=== PATIENT | female | born 1945 | race Caucasian/White ===

== ENCOUNTER 2017-04-07 10:51 | Observation (INO) | payer MEDICARE, BC ==
[~2017-04-07] VITALS: Ht 162.6 cm; Wt 84.5 kg
--- NOTE | ~2017-04-07 | CR206 ---
[facility] A Service of [facility] & [facility] RADIOLOGY TEXT RESULTS PATIENT: AUDREY DIXON LOCATION: [facility] [id number] : [birth year] UNIT #: [id number] AGE: [address]: Jose Luis Pineda MD SEX: F ORDER DR: [id number] [facility] [address] [facility]. [place], [place] [address] [id number] I MR#: [id number] #: [id number] NAME: AUDREY DIXON. : 1945 SEX: F STUDY DATE/TIME: 04/07/2017 UNIT: [facility] ROOM: [facility] STUDY DESCRIPTION: CR Pelvis 1 or 2 Views Attending Physician: Jose Luis Pineda M.D. Ordering Physician: Tonia Mcginnis Primary Care Physician: Contreras Otero M.D. MEDICAL IMAGING REPORT This report is preliminary unless electronic signature is present EXAM Pelvis 04/07/2017, 1223 hours HISTORY 71-year-old woman, who fell last night. Right hip pain. Right arm pain. COMPARISON CT pelvis 07/29/2015. FINDINGS Single view of the pelvis suggests diffuse osteopenia. There is no acute pelvic or hip fracture. There is joint space loss iuekz-inrnjke-dgxe-left hip. Degenerative changes at the sacroiliac joints. IMPRESSION Osteopenia with no pelvic or hip fracture seen. Dictated by... Charlette Miranda M.D. THIS IS AN ELECTRONICALLY VERIFIED REPORT Charlette Miranda M.D. at 04/08/2017 2:32 PM FERNANDO/alec TD: 04/07/2017 17:51 JOB #: [id number] MEDICAL IMAGING REPORT Page 1 of 1 COPY
--- NOTE | ~2017-04-07 | EKG ---
PATIENT: AUDREY DIXON UNIT #: [id number] Ventricular Rate: 64 BPM Atrial Rate: 64 BPM P-R Interval: 158 ms QRS Duration: 70 ms Q-T Interval: 426 ms QTC Calculation(Bezet): 439 ms P [place]: 42 degrees Calculated R [place]: -23 degrees Calculated T [place]: -22 degrees Diagnosis Line: Normal sinus rhythm Diagnosis Line: Nonspecific ST and T wave abnormality Diagnosis Line: Abnormal ECG Diagnosis Line: When compared with ECG of 02-NOV-2015 06:46, Diagnosis Line: T wave inversion now evident in Anterior leads Diagnosis Line: Confirmed by NATIVIDAD RUEDA MD ([id number]) on Diagnosis Line: 04/09/2017 7:11:22 AM INTERPRETING NAIN SOLIS
--- NOTE | ~2017-04-07 | HP ---
Unit #: [id number] #: [id number] Patient: AUDREY DIXON [id number] [address] [place], [place] [address] [id number] I MR#: [id number] NAME: AUDREY DIXON. ROOM: 577 Age: 71 Sex: F Admission Date: 04/07/2017 : 1945 Attending Physician: Sravan Augustine M.D. Primary Care Physician: Contreras Otero M.D. HISTORY AND PHYSICAL CHIEF COMPLAINT Fall. HISTORY OF PRESENT ILLNESS The patient is a 71-year-old female with a past medical history of paroxysmal atrial fibrillation, CVA, hypertension, hypothyroidism and history of a GI bleed from small bowel, presented to the emergency room status post fall. The patient stated the patient slipped and fell last night and was unable to get up this morning and brought to the emergency room for the further evaluation. The patient was found to have a UTI with the 3+ leukocyte esterase and innumerable urine WBCs and 4+ urine bacteria. The patient received the dose of Rocephin in the emergency room. The patient wanted to go home after receiving the antibiotic; however, patient was unable to stand up and was worse from the baseline and is being admitted for the above reasons. Denies any fevers, chills, nausea or vomiting. PAST MEDICAL HISTORY History of paroxysmal atrial fibrillation, hypertension, hypothyroidism, history of a left hemispheric CVA, diverticular disease, gastroesophageal reflux disease. PAST SURGICAL HISTORY Hysterectomy, colostomy and reversal, hernia repair and mesh placement, total abdominal hysterectomy. SOCIAL HISTORY The patient is a nonsmoker, no history of alcohol or any substance abuse, lives with her and grandson. FAMILY HISTORY Reviewed and none. ALLERGIES No known drug allergies. HOME MEDICATIONS Patient is on Risperdal, Betapace, sotalol, Synthroid, vitamin D, lisinopril and Lopressor, Protonix, Paxil, K-Dur, pravastatin, Norvasc, calcium, Boniva and iron. REVIEW OF SYMPTOMS Positive for weakness. Positive for fall. Denies any chest pain. Denies Unit #: [id number] #: [id number] Patient: AUDREY DIXON any shortness of breath. Denies any headache. Denies nausea and vomiting. Denies abdominal pain and other review of symptoms PHYSICAL EXAMINATION GENERAL APPEARANCE: On examination the patient is lying on a bed not in acute distress. VITAL SIGNS: Temperature 98.3, pulse 77, respiratory rate 14, blood pressure 118/80, sating 92% at room air. HEENT: Head atraumatic, normocephalic. Pupils equal, round and reacting to light and accommodation. Extraocular movements are intact. NECK: Supple. LUNGS: Decreased air entry at the bases. HEART: Irregular rate and rhythm. ABDOMEN: Soft. Positive bowel sounds. EXTREMITIES: No cyanosis. No clubbing. NEUROLOGIC: Alert, awake, oriented. DIAGNOSTIC STUDIES LABORATORY DATA: UA shows 3+ leukocyte esterase, positive nitrites, urine RBCs 50 to 100, urine WBCs innumerable, 4+ urine bacteria. WBC 11.5, hemoglobin 12.8, platelet is 165 and sodium 133, potassium 4.1, chloride 106, bicarb 24, glucose 109, BUN 19, creatinine 1.1, AST 16, ALT 12, alkaline phosphatase 50 and PT is 20.6. IMAGING: X-ray of the pelvis shows no acute pathology. ASSESSMENT 1. Weakness. 2. Urinary tract infection. 3. Status post fall. PLAN Admit to the observation with the telemetry, continue with the IV Rocephin and repeat the labs again in the morning and OT/PT evaluation in the morning and further recommendations will follow. Dictated by Joni Vidal/jonna TD: 04/07/2017 21:06 JOB #: [id number] HISTORY AND PHYSICAL Page 1 of 1 X SRAVAN AUGUSTINE MD X HISTORY AND PHYSICAL
--- NOTE | ~2017-04-07 | DS ---
Unit #: [id number] #: [id number] Patient: AUDREY DIXON [id number] [address] [address] [id number] I MR#: [id number] NAME: AUDREY DIXON. ROOM: 231 Age: 71 Sex: F Admission Date: 04/07/2017 : 1945 Discharge Date: 04/09/2017 Attending Physician: Jose Luis Pineda M.D. Primary Care Physician: Contreras Otero M.D. DISCHARGE SUMMARY DISCHARGE DIAGNOSES 1. Urinary tract infection. 2. Deconditioning. 3. History of stroke. 4. Aphasia. HOSPITAL COURSE The patient is a 71-year-old female brought to the [facility] emergency department on 04/07/2017 secondary to falls. In the emergency department she was noted to have a urinary tract infection. Her urine culture has ultimately grown Klebsiella pneumonia, only resistant to ampicillin. The patient was evaluated by physical therapy and occupational therapy and noted to be in need of rehabilitation. She has had worsening exercise tolerance since her stroke, approximately three years ago. At this time, given sensitivities the patient is being discharged to rehab. DISCHARGE MEDICATIONS 1. Lisinopril 20 mg daily. 2. Betapace 40 mg p.o. b.i.d. 3. Synthroid 2000 units p.o. daily. 4. Pravastatin 40 mg daily. 5. Risperdal 1.725 mg p.o. b.i.d. 6. Protonix 40 mg p.o. b.i.d. 7. Paxil 40 mg daily. 8. Potassium chloride 20 mEq p.o. daily. 9. Calcium 600 mg daily. 10. Boniva 150 mg p.o. monthly. 11. Ferrous sulfate 325 mg p.o. b.i.d. 12. Lopressor 25 mg p.o. b.i.d. 13. Vitamins A and D ointment daily. 14. Norvasc 5 mg p.o. b.i.d. 15. Keflex 500 mg p.o. q.i.d. times 5 more days. FOLLOWUP The patient is being discharged to rehab. She is to follow up with her primary care physician upon discharge from that facility. Unit #: [id number] #: [id number] Patient: CARRILLOADAIRAUDREY MARTINEZ Dictated by... Joni Baum/anne TD: 04/09/2017 15:47 JOB #: [id number] DISCHARGE SUMMARY Page 1 of 1 X Jose Luis Pineda MD X DISCHARGE SUMMARY
--- NOTE | ~2017-04-07 | CR157 ---
[facility] A Service of [facility] RADIOLOGY TEXT RESULTS PATIENT: AUDREY DIXON LOCATION: [facility] [address] : [birth year] UNIT #: [id number] AGE: [address]: Jose Luis Pineda MD SEX: F ORDER DR: [id number] [facility] [address] [facility]. [place], [place] [address] [id number] MR#: [id number] Acc #: [id number] NAME: AUDREY DIXON : 1945 SEX: F STUDY DATE/TIME: 04/07/2017 UNIT: [facility] ROOM: STUDY DESCRIPTION: CR Humerus Min 2 View Rt Attending Physician: Warren Randall M.D. Ordering Physician: [facility] Primary Care Physician: Contreras Otero M.D. MEDICAL IMAGING REPORT This report is preliminary unless electronic signature is present EXAM Right humerus 2 views 04/07/2017 1220 hours HISTORY 71-year-old woman who fell last night. Pain in the right arm and hip. COMPARISON None. FINDINGS 2 views of the right humerus are essentially the same projection. There is no humerus fracture seen. There is degenerative spurring at the acromioclavicular joint. The humeral head appears high-riding which could indicate chronic rotator cuff tear. IMPRESSION 2 views of the right humerus are submitted. These are essentially the same projection. No humeral fracture is seen. There is degenerative spurring at the acromioclavicular joint with humeral head appearing high-riding on this projection. This could be projectional but could indicate a chronic rotator cuff tear. Dictated by... Charlette Miranda M.D. THIS IS AN ELECTRONICALLY VERIFIED REPORT Charlette Miranda M.D. at 04/08/2017 8:53 AM FERNANDO/alec TD: 04/07/2017 17:34 JOB #: [id number] [facility] A Service of [facility] RADIOLOGY TEXT RESULTS PATIENT: AUDREY DIXON LOCATION: [facility] 577-01 : [birth year] UNIT #: [id number] AGE: [address]: Jose Luis Pineda MD SEX: F ORDER DR: MEDICAL IMAGING REPORT Page 1 of 1 COPY
[~2017-04-07 10:51] MED LIST: A + D OINTMENT113 GM TD; ALL DAY ALLERGY10 M2 PO; ALLERGY10 M2 PO; AMIODARONE HCL100 MG PO; AMIODARONE PO; ASPIRIN81 M1 PO; BACTRIM DS TABL1 TA1 PO; BENADRYL25 M3 PO; BONIVA150 MG PO; CALCIUM500 MG PO; CIPRO PO; CORDARONE200 M1 PO; COUMADIN1 MG PO; FERRO-TIME325 MG PO; FIBERCON625 MG PO; HYDROXYZINE PAM25 M1 PO; IRON325 ( 652 PO; K-DUR20 ME1 PO; MELOXICAM15 MG PO; METOPROLOL PO; METOPROLOL TAR25 MG PO; METOPROLOL TART25 MG PO; MIRALAX17 G1 PO; NIFEDIPINE ER60 M1 PO; NIFEDIPINE PO; OMEPRAZOLE20 M2 PO; OMEPRAZOLE40 MG PO; OYSTER CALCIUM500 MG PO; PANTOPRAZOLE SO40 MG PO; PAXIL10 MG PO; PAXIL40 MG PO; POTASSIUM CHLO10 MEQ PO; PRAVASTATIN SOD40 MG PO; PRILOSEC20 MG PO; PROTONIX PO; RISPERIDONE0.25 MG PO; SYNTHROID88 MCG PO; ZIAGEN300 M1; ZYRTEC10 M2 PO
[2017-04-07] MEDS ORDERED: A AND D OINTM42.5 GM (11:21)
[2017-04-07] MEDS ORDERED: NORVASC PO (11:21)
[2017-04-07] MEDS ORDERED: CALCIUM500 M1 PO (11:22)
[2017-04-07] MEDS ORDERED: BONIVA150 MG PO (11:22)
[2017-04-07] MEDS ORDERED: LOPRESSOR PO (11:22)
[2017-04-07] MEDS ORDERED: IRON325 MG PO (11:22)
[2017-04-07] MEDS ORDERED: PROTONIX PO (11:23)
[2017-04-07] MEDS ORDERED: PAXIL PO (11:23)
[2017-04-07] MEDS ORDERED: K-DUR20 ME2 PO (11:23)
[2017-04-07] MEDS ORDERED: PRAVASTATIN SOD40 MG PO (11:24)
[2017-04-07] MEDS ORDERED: RISPERIDONE PO (11:24)
[2017-04-07] MEDS ORDERED: VITAMIN D2000 UNIT PO (11:25)
[2017-04-07] MEDS ORDERED: BETAPACE PO (11:25)
[2017-04-07] MEDS ORDERED: SYNTHROID88 MCG PO (11:25)
[2017-04-07] MEDS ORDERED: LISINOPRIL PO (11:26)
[2017-04-07] MEDS ORDERED: PATIENT'S PHARMACY (11:28)
[2017-04-07 12:44] LABS: BASOPHIL% 0.4 % (0-2.5); EOSINOPHIL# 0.2 X10e3 (0-0.7); EOSINOPHIL% 1.3 % (0.0-7.0); HEMATOCRIT 38.8 % (35.0-45.0); HEMOGLOBIN 12.8 gm/dL (12.0-16.0); LYMPHOCYTE# 1.3 X10e3 (1.0-3.5); LYMPHOCYTE% 11.2 % (17.0-45.0); MEAN CELL VOLUME 86.4 FL (83-96); MEAN CORPUSCULAR HEMOGLOBIN 28.6 PG (28-34); MEAN CORPUSCULAR HGB CONC 33.1 g/dL (30-36); MEAN PLATELET VOLUME 8.7 FL (6.5-11.5); MONOCYTE# 0.6 X10e3 (0-1.0); MONOCYTE% 5.6 % (3.0-12.0); NEUTROPHIL# 9.3 X10e3 (1.5-7.1); NEUTROPHIL% 81.5 % (40-75); PLATELET COUNT 165 X10e3 (140-420); RED BLOOD COUNT 4.49 X10e (3.90-5.30); RED CELL DISTRIBUTION WIDTH 13.8 % (11.0-15.5); WHITE BLOOD COUNT 11.5 X10e3 (4.0-10.5)
[2017-04-07 12:59] LABS: ALBUMIN SERUM 2.9 g/dL (3.5-5.0); BILIRUBIN, DIRECT 0.2 mg/dL (0.0-0.2); BILIRUBIN,INDIRECT 0.8 mg/dL (0.0-0.9); BUN/CREATININE RATIO 17.27; CALCIUM SERUM 8.4 mg/dL (8.4-10.2); CREATININE SERUM 1.1 mg/dL (0.6-1.4); GLOM FILT RATE Estimated 50.8 mL/min (>60); POTASSIUM 4.1 mmol/L (3.5-5.1); PROTEIN TOTAL SERUM 6.1 g/dL (6.0-8.3)
[2017-04-07 13:11] LABS: DIFF IND NO
[2017-04-07 13:27] LABS: URINE SOURCE CLEAN CATCH
[2017-04-07 14:16] LABS: URINE APPEARANCE TURBID; URINE BILIRUBIN NEG (NEG); URINE BLOOD 2+ (NEG); URINE COLOR YELLOW; URINE GLUCOSE NEG (NEG); URINE KETONE NEG (NEG); URINE LEUKOCYTE ESTERASE 3+ (NEG); URINE NITRATE POS (NEG); URINE PH 5.5 (5-8); URINE PROTEIN TRACE (NEG); URINE SPECIFIC GRAVITY 1.014 (1.003-1.035); URINE UROBILINOGEN 0.2 MG/DL (NEG)
[2017-04-07 14:19] LABS: CULTURE INDICATED? YES; URBCS1 AUWI 50-100 /[HPF] (0-2); URINE BACTERIA AUWI 4+ (NEGATIVE); URINE SQUAMOUS EPITHELIAL CELL FEW /[HPF]; UWBCS1 AUWI INNUM (0-5)
[2017-04-08 05:32] LABS: HEMATOCRIT 36.7 % (35.0-45.0); HEMOGLOBIN 12.2 gm/dL (12.0-16.0); MEAN CELL VOLUME 87.2 FL (83-96); MEAN CORPUSCULAR HGB CONC 33.3 g/dL (30-36); RED BLOOD COUNT 4.21 X10e (3.90-5.30); RED CELL DISTRIBUTION WIDTH 13.9 % (11.0-15.5); WHITE BLOOD COUNT 10.5 X10e3 (4.0-10.5)
[2017-04-08 06:02] LABS: BUN/CREATININE RATIO 16.36; CALCIUM SERUM 8.2 mg/dL (8.4-10.2); CREATININE SERUM 1.1 mg/dL (0.6-1.4); GLOM FILT RATE Estimated 50.8 mL/min (>60); POTASSIUM 4.1 mmol/L (3.5-5.1)
== END 2017-04-09 16:59 ==
LOC: CED 10:51 → C2A 17:30 → CEDOF 17:30 → CED 18:29 → C5C 21:02 → CEDOF 21:02 → C5C 04-08 07:28 → C2A 04-08 17:19
PROVIDERS: Emergency Medicine; Internal Medicine
DX: N39.0 Urinary tract infection, site not specified (principal); B96.1 Klebsiella pneumoniae [K. pneumoniae] as the cause of diseases classified elsewhere; Z16.11 Resistance to penicillins; R53.1 Weakness; Z91.81 History of falling; I69.320 Aphasia following cerebral infarction; M85.88 Other specified disorders of bone density and structure, other site
CPT/HCPCS: 36415; 72170; 73060; 80048; 80076; 81003; 82550; 85025; 85027; 85730; 87086; 87088; 87186; 93005; 94760; 96374; 96376; 97116; 97163; 97167; 97530; 99285; G0378; G8978-GP; G8979-GP; G8987-GO; G8988-GO; J0696